=== PATIENT | female | born 1955 | race Caucasian/White ===

== ENCOUNTER 2024-11-26 13:34 | Emergency (ER) | payer MEDICAID, OTHER ==
[~2024-11-26] VITALS: Ht 160 cm; Wt 87.1 kg
[2024-11-26] MEDS ORDERED: ACETAMINOPHEN ES 500 MG TABLET ONE (14:44)
[2024-11-26] MEDS: ACETAMINOPHEN ES 500 MG TABLET PO ONE (14:52)
[2024-11-26 16:28] VITALS: BP 128/78; TEMP 98.4; O2SAT 98
== END 2024-11-26 16:29 | disposition home or self-care (01) ==
LOC: ER 13:36
DX: M25.562 Pain in left knee (principal); M25.561 Pain in right knee; M25.532 Pain in left wrist; M25.531 Pain in right wrist; R51.9 Headache, unspecified; I10 Essential (primary) hypertension; E11.9 Type 2 diabetes mellitus without complications; W01.0XXA Fall on same level from slipping, tripping and stumbling without subsequent striking against object, initial encounter; Y93.89 Activity, other specified; Y92.89 Other specified places as the place of occurrence of the external cause; Y99.8 Other external cause status
CPT/HCPCS: 70450-TC; 70486-TC; 73110; 73564-TC